=== PATIENT | female | born 1995 | race Hispanic/Latino ===

== ENCOUNTER 2018-12-09 19:27 | Emergency (ER) | payer MEDICAID, OTHER | END 2018-12-09 21:00 | disposition home or self-care (01) | LOC: ERS 19:27 | DX: O99.89 Other specified diseases and conditions complicating pregnancy, childbirth and the puerperium (principal); R10.30 Lower abdominal pain, unspecified; O99.351 Diseases of the nervous system complicating pregnancy, first trimester; O99.611 Diseases of the digestive system complicating pregnancy, first trimester; Z3A.13 13 weeks gestation of pregnancy; V43.62XA Car passenger injured in collision with other type car in traffic accident, initial encounter | CPT/HCPCS: 99283 ==

== ENCOUNTER 2019-06-07 09:28 | Inpatient (IN) | payer OTHER ==
[2019-06-07 10:16] VITALS: BMI 28.3
[2019-06-07] MEDS ORDERED: hydrALAZINE 20 MG/ML VIAL SLOW IVP PRN ×3 (10:29→12:05)
--- NOTE | 2019-06-07 10:31 | PDOC.LDHP ---
Labor and Delivery H&P Chief complaint: loss of fluid (Started Wednesday at 0930...4 days) HPI: 23 yo G1 with "random" LOF since Wednesday...small drops, no odor. No fevers, no recent sex Good FM Current gestational age (weeks): 38 (4 days) Due date: 06/18/19 Dating criteria: last menstrual period Grav: 1 Current complications: none Abnormal US findings: No Current medications: pre- vitamins Previous surgical history: none Allergies/Adverse Reactions: Allergies Allergy/AdvReac Type Severity Reaction Status Date / Time No Known Drug Allergies Allergy Verified 06/07/19 10:13 - Physical Exam Vital signs reviewed and normal: yes (138/72 afebrile) General: NAD Heart: RRR Lungs: CTAB Abdomen: gravid Extremeties: no edema FHT: category 1 [place] contractions every: very few and irregular - Assessment early term with possible LOF since Wednesday (4 days). - Plan Plan: observation in L&D (VP3 ordered, ordered. GBS unsure but will check records; I am on the way to a CS now but will do SSE if required when CS done with other patient. [place] aware)
[2019-06-07 11:30] LABS: Amnisure Internal Control QC ACCEPTABLE (ACCEPTABLE); Amnisure Test No Membranes Rupture (No Rupture)
[2019-06-07] MEDS ORDERED: Ibuprofen 800 MG TAB PO PRN ×2 (11:43→12:05)
[2019-06-07] MEDS ORDERED: NS / Oxytocin 40 units/1000ml 1,000 ML IV PRN ×2 (11:43→12:05)
[2019-06-07] MEDS ORDERED: Promethazine HCl 25 MG/ML VIAL IM PRN ×2 (11:43→12:05)
[2019-06-07] MEDS ORDERED: HYDROcodone/Acetaminophen 5/325 mg Tablet PO PRN ×4 (11:43→12:05)
[2019-06-07] MEDS ORDERED: Lidocaine 1% (PF) 30 ML VIAL SC PRN ×2 (11:43→12:05)
[2019-06-07] MEDS ORDERED: Ondansetron PF 4 MG/2 ML Vial IVP PRN ×2 (11:43→12:05)
[2019-06-07] MEDS ORDERED: Butorphanol Tartrate 1 MG/ML VIAL SLOW IVP PRN (11:43)
--- NOTE | 2019-06-07 11:43 | PDOC.EVN ---
Event Note - Event Note Event Note: Amnisure was neg However, I performed a SSE and found clear pooling in posterior CX. While there is also evidence of yeast, the pooling cannot R/O ROM. VP3 pending Due to 4 day HX of continued LOF, and findings on exam..cannot R/O ROM...will admit. Notify Dr alamo Check GBS result
[2019-06-07] MEDS ORDERED: Lactated Ringer's 1,000 ML IV SCH (11:45)
[2019-06-07] MEDS ORDERED: Zolpidem Tartrate 5 MG TAB PO PRN (12:05)
[2019-06-07] MEDS ORDERED: Acetaminophen 500 MG TAB PO PRN (12:05)
[2019-06-07] MEDS ORDERED: Methylergonovine 0.2 MG/ML VIAL IM PRN (12:05)
[2019-06-07] MEDS ORDERED: Diphenoxylate HCl/Atropine Tablet PO PRN ×2 (12:05)
[2019-06-07] MEDS ORDERED: Carboprost 250 MCG/ML AMP IM PRN (12:05)
[2019-06-07] MEDS ORDERED: Misoprostol 200 MCG TAB PR PRN (12:05)
[2019-06-07] MEDS ORDERED: NS w/ Oxytocin 10 units 500 ML IV SCH (12:15)
[2019-06-07] MEDS ORDERED: Misoprostol 100 MCG TAB VAG SCH (12:15)
[2019-06-07 12:34] LABS: Hemoglobin 11.3 g/dL (12.0-16.0); Mean Corpuscular HGB CONC 33.5 g/dL (32.0-36.0); Mean Corpuscular Hemoglobin 27.6 pg (27.0-31.0); Mean Corpuscular Volume 82.4 fL (78.0-98.0); Mean Platelet Volume 9.7 fL (7.4-10.4); Platelet Count 232 thou/uL (130-400); RBC Distribution Width 14.4 % (11.5-14.5); Red Blood Cell (RBC) Count 4.09 mill/uL (4.20-5.40)
[2019-06-07 13:22] LABS: Syphilis Antibody Nonreactive (Nonreactive); Syphilis Antibody Index 0.14 S/CO (<1.00 Non-Reactive)
[2019-06-07 13:23] LABS: HBSAg Index 0.12 S/CO (0-0.99); HIV (1/2) Antibody/Antigen Non-Reactive (NonReactive); HIV 1/2 INDEX 0.11 S/CO (<1.00); Hep B Surf Ag Non-Reactive S/CO (NonReactive); Syphilis Antibody Nonreactive (Nonreactive); Syphilis Antibody Index 0.14 S/CO (<1.00 Non-Reactive)
[2019-06-07 13:24] LABS: HBSAg Index 0.13 S/CO (0-0.99); Hep B Surf Ag Non-Reactive S/CO (NonReactive)
[2019-06-07] MEDS: Misoprostol 100 MCG TAB PO SCH ×3 (13:47→21:37)
[2019-06-07] MEDS: Lactated Ringer's 1,000 ML IV SCH (13:49)
[2019-06-08] MEDS: Misoprostol 100 MCG TAB PO SCH ×3 (01:34→15:47)
[2019-06-08] MEDS: Lactated Ringer's 1,000 ML IV SCH ×3 (02:03→16:18)
[2019-06-08] MEDS ORDERED: FLU VACC QS2019-20(6MOS UP)/PF 60 MCG/0.5 ML SYRINGE IM ONE (10:30)
[2019-06-08] MEDS: Butorphanol Tartrate 1 MG/ML VIAL SLOW IVP PRN ×2 (16:15→17:25)
[2019-06-08] MEDS: NS w/ Oxytocin 10 units 500 ML IV SCH ×2 (17:00→17:01)
[2019-06-08] MEDS ORDERED: Fentanyl 4 mcg/Bup 0.1% Cadd 100 ML ONE (18:18)
[2019-06-08] MEDS ORDERED: Lactated Ringer's 500 ML IV PRN (19:45)
[2019-06-08] MEDS ORDERED: Ondansetron PF 4 MG/2 ML Vial IVP PRN (19:45)
[2019-06-08] MEDS ORDERED: Communication Order-Pharmacy FS SCH (19:45)
[2019-06-08] MEDS ORDERED: Acetaminophen 325 MG TAB PO PRN (19:45)
[2019-06-08] MEDS ORDERED: ePHEDrine/0.9% NaCl/PF SYRINGE 50 mg/10 ml SLOW IVP PRN (19:45)
[2019-06-08] MEDS ORDERED: Fentanyl 4 mcg/Bupivacaine 0.1% Cassette 100 ML EPIDURAL SCH (19:45)
[2019-06-08] MEDS ORDERED: Promethazine HCl 25 MG/ML VIAL IM PRN (19:45)
[2019-06-08] MEDS ORDERED: Naloxone HCl 0.4 mg/ml Vial IVP PRN ×2 (19:45)
[2019-06-08] MEDS ORDERED: diphenhydrAMINE 50 MG/ML VIAL IVP PRN (19:45)
[2019-06-09] MEDS ORDERED: Misoprostol 200 MCG TAB ONE (01:44)
[2019-06-09] MEDS ORDERED: Lanolin Ointment 7 GM TUBE TOP PRN (05:10)
[2019-06-09] MEDS ORDERED: NS / Oxytocin 40 units/1000ml 1,000 ML IV SCH (05:10)
[2019-06-09] MEDS ORDERED: Preparation H Ointment 28 GM TUBE PR PRN (05:10)
[2019-06-09] MEDS ORDERED: Bisacodyl 10 MG SUPP PR PRN (05:10)
[2019-06-09] MEDS ORDERED: Zolpidem Tartrate 5 MG TAB PO PRN (05:10)
[2019-06-09] MEDS ORDERED: Ondansetron PF 4 MG/2 ML Vial IVP PRN (05:10)
[2019-06-09] MEDS ORDERED: HYDROcodone/Acetaminophen 5/325 mg Tablet PO PRN ×2 (05:10)
[2019-06-09] MEDS ORDERED: diphenhydrAMINE 25 MG CAP PO PRN (05:10)
[2019-06-09] MEDS ORDERED: hydrALAZINE 20 MG/ML VIAL SLOW IVP PRN (05:10)
[2019-06-09] MEDS ORDERED: Promethazine HCl 25 MG/ML VIAL IM PRN (05:10)
[2019-06-09] MEDS ORDERED: Benzocaine-Menthol 82.5 ML CAN TOP PRN (05:10)
[2019-06-09] MEDS ORDERED: Misoprostol 200 MCG TAB VAG PRN (05:10)
[2019-06-09] MEDS ORDERED: Milk Of Magnesia 30 ML UDCUP PO PRN (05:10)
[2019-06-09] MEDS ORDERED: Methylergonovine 0.2 MG/ML VIAL IM PRN (05:10)
[2019-06-09] MEDS: Ibuprofen 800 MG TAB PO SCH ×3 (05:50→21:33)
[2019-06-09] MEDS: Misoprostol 100 MCG TAB PO SCH ×2 (08:19→08:20)
[2019-06-09] MEDS: Lactated Ringer's 1,000 ML IV SCH (08:20)
[2019-06-09] MEDS ORDERED: Varicella virus, LIVE 0.5 ML VIAL SC ONE (09:00)
[2019-06-09] MEDS ORDERED: Adacel (T-DAP) 0.5 ML SYRINGE IM ONE (09:00)
[2019-06-09] MEDS ORDERED: Measles/Mumps/Rubella 10 MCG/0.5 ML VIAL SC ONE (09:00)
[2019-06-09] MEDS: Prenatal Vitamin 1 TAB PO SCH (09:14)
[2019-06-09] MEDS: Docusate Calcium (SURFAK) 240 MG CAP PO SCH ×2 (09:14→21:33)
[2019-06-09] MEDS: Ferrous Sulfate 325 MG TAB PO SCH ×2 (09:15→15:53)
[2019-06-10] MEDS: Ibuprofen 800 MG TAB PO SCH ×3 (05:58→22:05)
[2019-06-10 06:20] LABS: Hemoglobin 9.8 g/dL (12.0-16.0); Mean Corpuscular Hemoglobin 28.6 pg (27.0-31.0); Mean Corpuscular Volume 86.7 fL (78.0-98.0); Mean Platelet Volume 9.5 fL (7.4-10.4); Platelet Count 194 thou/uL (130-400); RBC Distribution Width 14.3 % (11.5-14.5); Red Blood Cell (RBC) Count 3.43 mill/uL (4.20-5.40); White Blood Cell (WBC) Count 9.8 thou/uL (4.8-10.8)
[2019-06-10] MEDS: Prenatal Vitamin 1 TAB PO SCH (08:43)
[2019-06-10] MEDS: Ferrous Sulfate 325 MG TAB PO SCH ×2 (08:43→17:58)
[2019-06-10] MEDS: Docusate Calcium (SURFAK) 240 MG CAP PO SCH ×2 (08:45→22:05)
--- NOTE | 2019-06-10 11:58 | PDOC.PP ---
Post Progress Note Post Day #: 1 PO intake tolerated: yes Flatus: yes Ambulation: yes Vital Signs (12 hours) Temp Pulse Resp BP Pulse Ox 06/10/19 08:15 98 06/10/19 08:00 98.1 F 66 16 125/78 98 06/10/19 00:10 98.0 F 65 18 110/59 L Weight Weight 181 lb - Physical Examination General: NAD Cardiovascular: no m/r/g, RRR Respiratory: clear to auscultation bilaterally, non-labored breathing Abdominal: + bowel sounds, lochia, no distention Extremities: negative homans (B) Neurological: no gross focal deficits Psychiatric: A&Ox3, normal affect Result Diagrams: 06/10/19 06:10 Additional Labs: Post Labs Blood Type O POSITIVE 06/07/19 14:44 Hep Bs Antigen Non-Reactive S/CO (NonReactive) 06/07/19 12:23 - Assessment/Plan DC Home planned tomorrow
--- NOTE | 2019-06-10 12:59 | DN ---
DATE OF PROCEDURE: 06/09/2019 TIME: 1:19 [place] Day[employer] Savings Time. PREOPERATIVE DIAGNOSIS: Intrauterine at 38 weeks and 5 days with premature rupture of membranes and early labor. POSTOPERATIVE DIAGNOSIS: Intrauterine at 38 weeks and 5 days with premature rupture of membranes and early labor. PROCEDURE PERFORMED: Spontaneous vaginal delivery over a second-degree midline episiotomy. FINDINGS: Viable female weighing 3172 g or 7 pounds 0 ounce. Apgars 9 and 9. QUANTITATIVE BLOOD LOSS: 312 mL with Cytotec 800 mcg given. COMPLICATIONS: None. PROCEDURE IN DETAIL: The patient presented to [facility] where she was admitted to the labor and delivery service. The patient underwent a normal and uneventful labor with normal cervical dilatation until she was found to be completely dilated. She was then allowed to push and was able to bring the baby down and delivered the baby in a vertex presentation without difficulties. Once the head delivered in occiput anterior position, the shoulders followed spontaneously along with the rest of the baby's body. Once out the baby's mouth and nose were bulb suctioned. The cord was clamped and cut and baby was handed to waiting attendants. Cord blood was collected. Gentle fundal massage was performed and the placenta delivered intact without problems. Hemostasis was assured. Quantitative blood loss was calculated. Inspection of the cervix, vaginal vault, and perineum did not reveal any lacerations needing suturing. Once again, hemostasis was within normal limits and the patient was allowed to recover in the labor and delivery room. Baby went to nursery. Job ID: [id number]
--- NOTE | 2019-06-11 03:13 | PDOC.PP ---
Post Progress Note Post Day #: 2 PO intake tolerated: yes Flatus: yes Ambulation: yes Vital Signs (12 hours) Temp Pulse Resp BP Pulse Ox 06/11/19 00:45 97.8 F 68 95/46 L 06/10/19 19:45 97.9 F 69 20 137/63 99 Weight Weight 181 lb - Physical Examination General: NAD Cardiovascular: no m/r/g, RRR Respiratory: clear to auscultation bilaterally, non-labored breathing Abdominal: + bowel sounds, lochia Extremities: negative homans (B) Neurological: no gross focal deficits Psychiatric: A&Ox3, normal affect Result Diagrams: 06/10/19 06:10 Additional Labs: Post Labs Blood Type O POSITIVE 06/07/19 14:44 Hep Bs Antigen Non-Reactive S/CO (NonReactive) 06/07/19 12:23
[2019-06-11] MEDS: Ibuprofen 800 MG TAB PO SCH (05:02)
[2019-06-11 07:32] VITALS: BP 110/65; TEMP 98.3
[2019-06-11] MEDS: Ferrous Sulfate 325 MG TAB PO SCH (08:11)
[2019-06-11] MEDS: Prenatal Vitamin 1 TAB PO SCH (08:11)
[2019-06-11] MEDS: Docusate Calcium (SURFAK) 240 MG CAP PO SCH (08:12)
[2019-06-11] MEDS ORDERED: FLU VACC QS2019-20(6MOS UP)/PF 60 MCG/0.5 ML SYRINGE IM ONE (09:30)
== END 2019-06-11 11:25 | disposition home or self-care (01) | DRG 807 ==
LOC: L&D/OP 09:28 → L&D 12:12 → 3SW 06-09 04:35
PROVIDERS: ADMIT Obstetrics & Gynecology; ATTEND Obstetrics & Gynecology
PROC: 10E0XZZ Delivery of Products of Conception, External Approach (ICD-10-PCS; principal; 2019-06-07)
PROC: 0W8NXZZ Division of Female Perineum, External Approach (ICD-10-PCS; 2019-06-07)
DX: O42.92 Full-term premature rupture of membranes, unspecified as to length of time between rupture and onset of labor (principal); Z37.0 Single live birth; O69.1XX0 Labor and delivery complicated by cord around neck, with compression, not applicable or unspecified; Z3A.38 38 weeks gestation of pregnancy
CPT/HCPCS: 36415; 84112; 85027; 86780; 86850; 86900; 86901; 87340; 87389; 87480; 87510; 87660; 90471; 90686; 90715; G0008; J0595; J0690; J2590